=== PATIENT | female | born 1940 | race Caucasian/White ===

== ENCOUNTER 2023-02-21 09:53 | Inpatient (IN) | payer OTHER ==
[~2023-02-21] VITALS: Ht 157.5 cm; Wt 74.4 kg
[2023-02-21] VITALS (7 sets, daily range): BP systolic 121–132; PULSE 71–78; RESP 18–20; TEMP 97.3–98.3; O2SAT 93–100
[2023-02-21 10:43] LABS: BILIRUBIN,URINE NEGATIVE (NEGATIVE); CLARITY/URINE CLOUDY (CLEAR); COLOR,URINE YELLOW (YELLOW); GLUCOSE,URINE NEGATIVE (NEGATIVE); KETONES,URINE 2+ (NEGATIVE); LEUKOCYTE ESTERASE ,URINE 2+ (NEGATIVE); NITRITE, URINE NEGATIVE (NEGATIVE); PH,URINE 6.5 (5.0-8.0); PROTEIN URINE TRACE (NEGATIVE); UROBILINOGEN,URINE 0.2 (0.2-1.0)
[2023-02-21 10:51] LABS: BLOOD, URINE TRACE (NEGATIVE)
[2023-02-21 10:57] LABS: BACTERIA,URINE FEW /HPF (None Seen); RBC,URINE 0-3 /HPF (0-3)
[2023-02-21 11:09] LABS: BASOPHILS % (AUTO) 0.2 % (0.0-2.0); EOSINOPHILS % (AUTO) 0.1 % (0.0-4.0); HEMATOCRIT 37.1 % (36-48); HEMOGLOBIN 12.2 g/dL (12.0-16.0); LYMPHOCYTES # (AUTO) 0.7 K/uL (1.0-5.5); LYMPHOCYTES % (AUTO) 9.1 % (20.5-51.5); MEAN CORPUSCULAR HEMOGLOBIN 30 pg (27-31); MEAN CORPUSCULAR HGB CONC 33 % (32-36); MEAN CORPUSCULAR VOLUME 90 fL (79.0-98.0); MONOCYTES # (AUTO) 0.2 K/uL (0.0-1.0); MONOCYTES % (AUTO) 3.1 % (1.7-9.3); NEUTROPHILS % (AUTO) 87.5 % (40.0-70.0); PLATELET COUNT (AUTO) 233 K/uL (130-430); RED BLOOD CELL COUNT(AUTO) 4.12 MIL/uL (4.2-6.2); RED CELL DISTRIBUTION WIDTH 13.6 % (9.0-15.0); WHITE BLOOD COUNT (AUTO) 7.9 K/uL (4.8-10.8)
[2023-02-21 11:15] LABS: ANION GAP 8 (5-15); CALCIUM 9.2 mg/dL (8.4-11.0); CARBON DIOXIDE 25 mmol/L (23-29); CHLORIDE 101 mmol/L (98-107); GLUCOSE 170 mg/dL (74-106); POTASSIUM 3.2 mmol/L (3.5-5.1); SODIUM SERUM 134 mmol/L (136-145); UREA NITROGEN, BLOOD 16 mg/dL (8-21)
[2023-02-21 11:16] LABS: CREATININE 1.11 mg/dL (0.55-1.30)
[2023-02-21 11:21] LABS: PROTHROMBIN TIME 10.3 SECS (9.5-12.5)
[2023-02-21 11:29] LABS: ALANINE AMINOTRANSFERASE 134 U/L (12-78); ALBUMIN 3.1 g/dL (3.4-4.8); AMYLASE 398 U/L (0-100); ASPARTATE AMINOTRANSFERASE 168 U/L (10-37); TOTAL BILIRUBIN 1.3 mg/dL (0.0-1.0); TOTAL PROTEIN, SERUM 6.9 g/dL (6.4-8.3)
[2023-02-21] MEDS ORDERED: KETOROLAC TROMETHAMINE 30 MG VIAL IM ONE (11:30)
[2023-02-21 11:59] LABS: LIPASE 3785 U/L (16-77)
[2023-02-21 12:06] LABS: ACETONE, SERUM NEGATIVE (NEGATIVE)
[2023-02-21] MEDS ORDERED: LOSA100T24 PO (12:15)
[2023-02-21] MEDS ORDERED: LEVO75TA7 PO (12:15)
[2023-02-21] MEDS ORDERED: ATOR10TA68 PO (12:15)
[2023-02-21] MEDS ORDERED: AMLO10TA88 PO (12:15)
[2023-02-21] MEDS ORDERED: ONDANSETRON HCL 4 MG/2 ML VIAL IVP PRN (12:30)
[2023-02-21] MEDS ORDERED: NACL 0.9% 1,000 ML IV ONE ×2 (12:30)
[2023-02-21] MEDS ORDERED: NACL 0.9% 1,000 ML IV SCH (12:30)
[2023-02-21] MEDS ORDERED: HYDROcodone/ACETAMIN 5-325 MG TAB (NORCO/ VICODIN) PO PRN ×2 (12:30→12:45)
[2023-02-21] MEDS ORDERED: ACETAMINOPHEN 325 MG TABLET PO PRN ×2 (12:30→12:45)
[2023-02-21] MEDS ORDERED: LEVOTHYROXINE SODIUM 0.075 MG TABLET PO ONE (13:00)
[2023-02-21] MEDS ORDERED: LOSARTAN POTASSIUM 50 MG TABLET (COZAAR) PO ONE (13:00)
[2023-02-21] MEDS ORDERED: amLODIPine BESYLATE 10 MG TABLET PO ONE (13:00)
[2023-02-21] MEDS ORDERED: cefTRIAXone 1 GM IVPB PREMIX 50 ML IV SCH (14:00)
[2023-02-21] MEDS ORDERED: CEFTRIAXONE SOD 1 GM/ D5W 50 ML IV SCH ×2 (15:00)
[2023-02-21] MEDS: NACL 0.9% 1,000 ML IV SCH (23:09)
[2023-02-22] VITALS (8 sets, daily range): BP systolic 110–135; PULSE 71–82; RESP 16–18; TEMP 97.7–98.4; O2SAT 94–99
[2023-02-22] MEDS: NACL 0.9% 1,000 ML IV SCH ×3 (01:53→10:15)
[2023-02-22 05:52] LABS: BASOPHILS # (AUTO) 0.1 K/uL (0.0-0.2); BASOPHILS % (AUTO) 1.2 % (0.0-2.0); EOSINOPHILS # (AUTO) 0.1 K/uL (0.0-0.4); EOSINOPHILS % (AUTO) 1.5 % (0.0-4.0); HEMATOCRIT 33.8 % (36-48); HEMOGLOBIN 10.9 g/dL (12.0-16.0); LYMPHOCYTES # (AUTO) 1.3 K/uL (1.0-5.5); MEAN CORPUSCULAR HEMOGLOBIN 29 pg (27-31); MEAN CORPUSCULAR HGB CONC 32 % (32-36); MEAN CORPUSCULAR VOLUME 91 fL (79.0-98.0); MONOCYTES # (AUTO) 0.3 K/uL (0.0-1.0); MONOCYTES % (AUTO) 4.5 % (1.7-9.3); NEUTROPHILS # (AUTO) 4.1 K/uL (1.8-7.7); NEUTROPHILS % (AUTO) 69.8 % (40.0-70.0); PLATELET COUNT (AUTO) 189 K/uL (130-430); RED BLOOD CELL COUNT(AUTO) 3.73 MIL/uL (4.2-6.2); RED CELL DISTRIBUTION WIDTH 13.4 % (9.0-15.0); WHITE BLOOD COUNT (AUTO) 5.8 K/uL (4.8-10.8)
[2023-02-22 06:10] LABS: ALANINE AMINOTRANSFERASE 134 U/L (12-78); ALBUMIN 2.5 g/dL (3.4-4.8); ANION GAP 8 (5-15); ASPARTATE AMINOTRANSFERASE 78 U/L (10-37); CALCIUM 8.3 mg/dL (8.4-11.0); CARBON DIOXIDE 24 mmol/L (23-29); CHLORIDE 110 mmol/L (98-107); CREATININE 0.89 mg/dL (0.55-1.30); GLUCOSE 97 mg/dL (74-106); PHOSPHORUS 3.2 mg/dL (2.7-4.5); POTASSIUM 3.3 mmol/L (3.5-5.1); SODIUM SERUM 142 mmol/L (136-145); TOTAL BILIRUBIN 0.5 mg/dL (0.0-1.0); TOTAL PROTEIN, SERUM 5.8 g/dL (6.4-8.3); UREA NITROGEN, BLOOD 13 mg/dL (8-21)
[2023-02-22] MEDS: LEVOTHYROXINE SODIUM 0.075 MG TABLET PO SCH (07:00)
[2023-02-22] MEDS: amLODIPine BESYLATE 10 MG TABLET PO SCH (09:00)
[2023-02-22] MEDS: LOSARTAN POTASSIUM 50 MG TABLET (COZAAR) PO SCH (09:00)
[2023-02-22] MEDS: LR 1,000 ML IV SCH ×3 (13:38→21:10)
[2023-02-22 22:10] LABS: BILIRUBIN,URINE NEGATIVE (NEGATIVE); CLARITY/URINE CLEAR (CLEAR); COLOR,URINE YELLOW (YELLOW); GLUCOSE,URINE NEGATIVE (NEGATIVE); KETONES,URINE 1+ (NEGATIVE); LEUKOCYTE ESTERASE ,URINE 1+ (NEGATIVE); NITRITE, URINE NEGATIVE (NEGATIVE); PROTEIN URINE NEGATIVE (NEGATIVE); UROBILINOGEN,URINE 0.2 (0.2-1.0)
[2023-02-22 22:11] LABS: BLOOD, URINE TRACE (NEGATIVE)
[2023-02-22 22:22] LABS: BACTERIA,URINE RARE /HPF (None Seen); MUCUS,URINE None Seen /LPF (None Seen)
[2023-02-23 00:07] VITALS: BP_SYST 132; PULSE 78; RESP 18; TEMP 97.3; O2SAT 94
[2023-02-23 05:29] LABS: BASOPHILS % (AUTO) 0.7 % (0.0-2.0); EOSINOPHILS # (AUTO) 0.2 K/uL (0.0-0.4); EOSINOPHILS % (AUTO) 3.9 % (0.0-4.0); HEMATOCRIT 37.3 % (36-48); HEMOGLOBIN 12.1 g/dL (12.0-16.0); LYMPHOCYTES # (AUTO) 1.5 K/uL (1.0-5.5); LYMPHOCYTES % (AUTO) 34.2 % (20.5-51.5); MEAN CORPUSCULAR HEMOGLOBIN 29 pg (27-31); MEAN CORPUSCULAR HGB CONC 32 % (32-36); MEAN CORPUSCULAR VOLUME 91 fL (79.0-98.0); MONOCYTES # (AUTO) 0.2 K/uL (0.0-1.0); MONOCYTES % (AUTO) 4.8 % (1.7-9.3); NEUTROPHILS # (AUTO) 2.4 K/uL (1.8-7.7); NEUTROPHILS % (AUTO) 56.4 % (40.0-70.0); PLATELET COUNT (AUTO) 196 K/uL (130-430); RED BLOOD CELL COUNT(AUTO) 4.12 MIL/uL (4.2-6.2); RED CELL DISTRIBUTION WIDTH 13.6 % (9.0-15.0); WHITE BLOOD COUNT (AUTO) 4.2 K/uL (4.8-10.8)
[2023-02-23 05:52] LABS: ALANINE AMINOTRANSFERASE 99 U/L (12-78); ALBUMIN 2.7 g/dL (3.4-4.8); ANION GAP 9 (5-15); ASPARTATE AMINOTRANSFERASE 44 U/L (10-37); CALCIUM 9.4 mg/dL (8.4-11.0); CARBON DIOXIDE 26 mmol/L (23-29); CHLORIDE 106 mmol/L (98-107); CREATININE 0.87 mg/dL (0.55-1.30); GLUCOSE 88 mg/dL (74-106); LIPASE 52 U/L (16-77); POTASSIUM 3.1 mmol/L (3.5-5.1); SODIUM SERUM 141 mmol/L (136-145); TOTAL BILIRUBIN 0.5 mg/dL (0.0-1.0); TOTAL PROTEIN, SERUM 6.3 g/dL (6.4-8.3); UREA NITROGEN, BLOOD 8 mg/dL (8-21)
[2023-02-23] MEDS: LR 1,000 ML IV SCH ×3 (06:24→21:39)
[2023-02-23] MEDS: LEVOTHYROXINE SODIUM 0.075 MG TABLET PO SCH (06:25)
[2023-02-23 08:00] VITALS: O2SAT 98
[2023-02-23 08:09] VITALS: BP_SYST 139; PULSE 80; RESP 18; TEMP 98.1; O2SAT 96
[2023-02-23] MEDS: amLODIPine BESYLATE 10 MG TABLET PO SCH (10:38)
[2023-02-23] MEDS: LOSARTAN POTASSIUM 50 MG TABLET (COZAAR) PO SCH (10:40)
[2023-02-23 11:23] VITALS: BP_SYST 131; PULSE 72; RESP 15; TEMP 98.3; O2SAT 100
[2023-02-23] MEDS ORDERED: POTASSIUM CHLORIDE 40 MEQ, LIDOCAINE JECT 2% PF 100 MG 50 MG in NS 250 ML IV ONE (13:30)
[2023-02-23] MEDS ORDERED: NALOXONE HCL 0.4 MG/ML AMP (NARCAN) IVP PRN ×2 (15:45)
[2023-02-23] MEDS ORDERED: HYDROmorphone 1 MG/ML INJ. CARTRIDGE IVP PRN ×2 (15:45→16:15)
[2023-02-23] MEDS ORDERED: ONDANSETRON HCL 4 MG/2 ML VIAL IVP PRN (15:45)
[2023-02-23] MEDS ORDERED: LR 1,000 ML IV SCH (15:45)
[2023-02-23] MEDS ORDERED: MORPHINE 4 MG INJ. 4 MG/ML VIAL IVP PRN (16:15)
[2023-02-23] MEDS ORDERED: ROCURONIUM BROMIDE 10 MG/ML (ZEMURON) ONE (16:37)
[2023-02-23] MEDS ORDERED: LIDOCAINE/EPI 1% 1:100000 20 ML VIAL ONE (16:37)
[2023-02-23] MEDS ORDERED: METOCLOPRAMIDE HCL 10 MG/2 ML VIAL ONE (16:37)
[2023-02-23] MEDS ORDERED: fentaNYL CITRATE/PF 100 MCG/2 ML AMP ONE (16:37)
[2023-02-23] MEDS ORDERED: PHENYLEPHRINE HCL 10 MG/ML VIAL (NEOSYNEPHRINE) ONE (16:37)
[2023-02-23] MEDS ORDERED: cefTRIAXone 1 GM VIAL ONE (16:37)
[2023-02-23] MEDS ORDERED: NEOSTIGMINE METHYLSULFATE 1 MG/ML, 10 ML VIAL ONE (16:37)
[2023-02-23] MEDS ORDERED: LIDOCAINE 1% 10 MG/ML, 20 ML MDV ONE (16:37)
[2023-02-23] MEDS ORDERED: SEVOFLURANE 15 MIN GAS INH ONE (16:37)
[2023-02-23] MEDS ORDERED: ETOMIDATE 20 MG/ 10 ML VIAL (AMIDATE) ONE (16:37)
[2023-02-23] MEDS ORDERED: GLYCOPYRROLATE 0.2 MG/ML VIAL ONE (16:37)
[2023-02-23] MEDS ORDERED: SUCCINYLCHOLINE CHLORIDE 20 MG/ML(QUELICIN) ONE (16:37)
[2023-02-23] MEDS ORDERED: ePHEDrine sulfate 50 MG/ML VIAL ONE (16:37)
[2023-02-23] MEDS ORDERED: LR 1,000 ML IV.SOLN IV ONE (16:37)
[2023-02-23] MEDS ORDERED: BUPIVACAINE /PF 0.25% 30 ML VIAL INJ ONE (16:37)
[2023-02-23] MEDS ORDERED: ONDANSETRON HCL 4 MG/2 ML VIAL ONE (16:37)
[2023-02-23] MEDS ORDERED: KETOROLAC TROMETHAMINE 30 MG VIAL ONE (16:37)
[2023-02-23] MEDS ORDERED: NS 1000 ML IV.SOLN IV ONE (16:37)
[2023-02-23 20:00] VITALS: BP_SYST 106; PULSE 86; RESP 16; TEMP 97.9; O2SAT 95
[2023-02-23 21:15] VITALS: O2SAT 95
[2023-02-24 00:13] VITALS: BP_SYST 106; PULSE 76; RESP 16; TEMP 96.7; O2SAT 95
[2023-02-24] MEDS: LR 1,000 ML IV SCH ×2 (01:30→06:32)
[2023-02-24 05:29] LABS: BASOPHILS % (AUTO) 0.7 % (0.0-2.0); EOSINOPHILS # (AUTO) 0.1 K/uL (0.0-0.4); EOSINOPHILS % (AUTO) 1.1 % (0.0-4.0); HEMATOCRIT 36.1 % (36-48); HEMOGLOBIN 11.7 g/dL (12.0-16.0); LYMPHOCYTES # (AUTO) 1.6 K/uL (1.0-5.5); MEAN CORPUSCULAR HEMOGLOBIN 30 pg (27-31); MEAN CORPUSCULAR HGB CONC 32 % (32-36); MEAN CORPUSCULAR VOLUME 91 fL (79.0-98.0); MONOCYTES # (AUTO) 0.4 K/uL (0.0-1.0); MONOCYTES % (AUTO) 6.1 % (1.7-9.3); NEUTROPHILS # (AUTO) 4.2 K/uL (1.8-7.7); NEUTROPHILS % (AUTO) 67.1 % (40.0-70.0); PLATELET COUNT (AUTO) 206 K/uL (130-430); RED BLOOD CELL COUNT(AUTO) 3.96 MIL/uL (4.2-6.2); RED CELL DISTRIBUTION WIDTH 13.6 % (9.0-15.0); WHITE BLOOD COUNT (AUTO) 6.3 K/uL (4.8-10.8)
[2023-02-24 06:05] LABS: ALANINE AMINOTRANSFERASE 77 U/L (12-78); ALBUMIN 2.6 g/dL (3.4-4.8); ANION GAP 7 (5-15); ASPARTATE AMINOTRANSFERASE 35 U/L (10-37); CALCIUM 8.9 mg/dL (8.4-11.0); CARBON DIOXIDE 28 mmol/L (23-29); CHLORIDE 105 mmol/L (98-107); CREATININE 0.88 mg/dL (0.55-1.30); GLUCOSE 87 mg/dL (74-106); POTASSIUM 4.2 mmol/L (3.5-5.1); SODIUM SERUM 140 mmol/L (136-145); TOTAL BILIRUBIN 0.5 mg/dL (0.0-1.0); TOTAL PROTEIN, SERUM 6.1 g/dL (6.4-8.3); UREA NITROGEN, BLOOD 10 mg/dL (8-21)
[2023-02-24] MEDS: LEVOTHYROXINE SODIUM 0.075 MG TABLET PO SCH (06:32)
[2023-02-24 07:40] VITALS: BP_SYST 149; PULSE 109; RESP 19; TEMP 97.7; O2SAT 97
[2023-02-24 08:00] VITALS: BP_SYST 119; PULSE 89; RESP 18; TEMP 98.6; O2SAT 95; O2SAT 97
[2023-02-24] MEDS: amLODIPine BESYLATE 10 MG TABLET PO SCH (10:10)
[2023-02-24] MEDS: LOSARTAN POTASSIUM 50 MG TABLET (COZAAR) PO SCH (10:13)
[2023-02-24] MEDS ORDERED: ONDA-8 TL (11:29)
[2023-02-24] MEDS ORDERED: DOCU250C14 PO (11:30)
[2023-02-24 13:00] VITALS: BP_SYST 112; PULSE 83; RESP 20; TEMP 98.9; O2SAT 95
[2023-02-24 15:06] VITALS: BP_SYST 112; PULSE 83; RESP 18; TEMP 98.6; O2SAT 95
== END 2023-02-24 15:35 | disposition home or self-care (01) | DRG 417 ==
LOC: SED 09:53 → SMU 12:23 → STU 02-23 19:56
PROVIDERS: ADMIT Family Medicine; ATTEND Family Medicine
PROC: 0FT44ZZ Resection of Gallbladder, Percutaneous Endoscopic Approach (ICD-10-PCS; principal; 2023-02-23 15:17)
DX: K80.00 Calculus of gallbladder with acute cholecystitis without obstruction (principal); K85.10 Biliary acute pancreatitis without necrosis or infection; E44.1 Mild protein-calorie malnutrition; E87.1 Hypo-osmolality and hyponatremia; N39.0 Urinary tract infection, site not specified; R74.01 Elevation of levels of liver transaminase levels; E87.6 Hypokalemia; E86.0 Dehydration; N28.1 Cyst of kidney, acquired; I35.1 Nonrheumatic aortic (valve) insufficiency; E80.6 Other disorders of bilirubin metabolism; K44.9 Diaphragmatic hernia without obstruction or gangrene; K82.8 Other specified diseases of gallbladder; K57.30 Diverticulosis of large intestine without perforation or abscess without bleeding; R74.8 Abnormal levels of other serum enzymes; I10 Essential (primary) hypertension; E03.9 Hypothyroidism, unspecified; Z79.899 Other long term (current) drug therapy; Z68.30 Body mass index [BMI] 30.0-30.9, adult
CPT/HCPCS: 36415; 71045; 74181; 76376; 76705; 80053; 81000; 81001; 81015; 82009; 82150; 83605; 83690; 83735; 84100; 85025; 85610-TC; 85730-TC; 86886; 86900; 86901; 87081; 87086; 88304; 93005; 93306; 96372; 97116-GP; 97163-GP; 99285; G0378; J0330; J0696; J1885; J2001; J2370; J2405; J2710; J2765; J3010; J3480; J3490; J7030; J7050; J7060; J7120